=== PATIENT | female | born 1950 | race African-American/Black ===

== ENCOUNTER 2017-01-13 06:13 | Day surgery (SDC) | payer OTHER ==
[2017-01-09 13:35] LABS: HEMATOCRIT 39.4 % (36.0-48.0); HEMOGLOBIN 13.4 g/dL (12.0-16.0)
[2017-01-09 13:51] LABS: BUN (BLOOD UREA NITROGEN) 20 MG/DL (6-23); CALCIUM, SERUM 10.4 MG/DL (8.5-10.4); CHLORIDE, SERUM 106 MMOL/L (96-112); CO2 (CARBON DIOXIDE) 27 MMOL/L (24-34); CREATININE 1.06 MG/DL (0.55-1.02); GFR AFRICAN AMERICAN 62 ML/MIN (>=60); GFR NON AFRICAN AMERICAN 54 ML/MIN (>=60); GLUCOSE, SERUM 105 MG/DL (60-99); POTASSIUM, SERUM 3.7 MMOL/L (3.5-5.3); SODIUM, SERUM 142 MMOL/L (135-148)
[2017-01-09 14:04] LABS: INTACT PTH (ICMA) 102.5 PG/ML (10.0-65.0)
--- NOTE | ~2017-01-13 | OP ---
Record Of Operation [facility] [address] [place]. [address] NAME: LION BULLOCK : 46 STATUS : [facility]#: [id number] AGE: 66 ADM/REG DATE : 01/13/17 MR#: [id number] REPORT SERV DATE: 01/13/17 DICTATED BY: LEON LOPEZ DATE: 01/13/17 REPORT STATUS : Draft TRANSCRIBED BY: ELADIA DATE: 01/13/17 DATE OF PROCEDURE: 01/13/2017 PREOPERATIVE DIAGNOSIS: Primary hyperparathyroidism. POSTOPERATIVE DIAGNOSIS: Primary hyperparathyroidism. PROCEDURE: Parathyroidectomy using intraoperative PTH monitoring. OCCUPATIONAL THERAPY MANAGER: Tru Carvajal. ANESTHESIA: General. ESTIMATED BLOOD LOSS: 5 mL. IV FLUIDS: 1400 mL. SPECIMEN: Right inferior parathyroid gland. COMPLICATIONS: None. BRIEF HISTORY: Ms. Bullock is a 66-year-old woman who presented with primary hyperparathyroidism. In office, ultrasound showed evidence of a right inferior parathyroid gland. Her sestamibi scan was negative. Parathyroidectomy was recommended. The procedure with the risks including bleeding, infection, injury to the recurrent laryngeal nerve causing hoarseness, low calcium following surgery and a possibility of recurrent or persistent disease were all explained. She agreed to proceed. DESCRIPTION OF PROCEDURE: After consent was obtained, she was taken to the operating room and placed in supine position on the operating table. General endotracheal anesthesia was administered. A shoulder roll was placed, the neck was extended, and she was placed in semi Marsh's position. Preoperative antibiotics were administered, SCDs were placed, and a time out was performed. The neck was then prepped and draped in normal sterile fashion. We began with a 4 cm skin crease incision using a #15 blade scalpel. Electrocautery was then used to dissect through the subcutaneous tissues and platysma. Subplatysmal flaps were created and the strap muscles were in the midline using electrocautery. We began on the right side. We elevated the right strap muscle and dissected the thyroid away from strap muscle back to the carotid. We began at the lower pole of the right thyroid lobe. We elevated the gland, rotated anteromedially, and dissected posterior to the lower aspect. We identified a markedly enlarged parathyroid gland. At this site, it was low in the tracheoesophageal groove. The recurrent laryngeal nerve was actually coursing anterior to the gland and it was on the capsule. We gently dissected this away from the capsule and then we were able to dissect the gland circumferentially and pull it medially away from the nerve to dissect the nerve laterally and posteriorly away from the pedicle. Once we had it Record Of Operation [facility] [address] [place]. [address] NAME: LION BULLOCK : 46 STATUS : [facility]#: [id number] AGE: 66 ADM/REG DATE : 01/13/17 MR#: [id number] REPORT SERV DATE: 01/13/17 DICTATED BY: LEON LOPEZ DATE: 01/13/17 REPORT STATUS : Draft TRANSCRIBED BY: ELADIA DATE: 01/13/17 elevated, we divided the pedicle between clips and passed off the field. We then dissected the other three glands. We identified the other three and they had a normal appearance. We oswaldo an intraoperative PTH values. Our preoperative PTH was 98.6. At 10 minutes post excision, it had dropped to 23, and at 15 minutes post excision, it dropped to 21. We elected to conclude the case. We irrigated both sides of the neck. Hemostasis was good. Surgicel was placed. We closed the strap muscles in the midline using a running 3-0 Vicryl suture with a small gap left inferiorly. The platysma was reapproximated with interrupted 4-0 Vicryl sutures. A running 5-0 Monocryl deep dermal suture was placed followed by running 5-0 Prolene subcuticular stitch. The neck was cleaned. Dermabond was applied and the Prolene was removed. The patient tolerated the procedure well, was extubated in the operating room and sent to the recovery room in stable condition. OSCAR/ELADIA Leon Lopez MD / [id number] CC: MD Pietro Hunt MD
[~2017-01-13 06:13] MED LIST: ALTACE10 MG PO; AMB10 PO; AMILOR/HCTZ1 TAB PO; ASAB PO; CAT2 PO; GLUCPH PO; HYDROCHLOROT25 MG PO; INDO50 PO; KLOR-CON 1010 MEQ PO; LORTAB10 PO; MULTIPLE VIT PO; P1 PO; PROAIR HFA INH; ULTRAM50 PO; VALIUM10 MG PO
[2017-01-13 09:34] LABS: PTH (INTRAOPERATIVE) 98.6 PG/ML (10.0-65.0); PTH TAT 0 Hrs 19 Mins
[2017-01-13 10:50] LABS: PTH (INTRAOPERATIVE) 21.9 PG/ML (10.0-65.0); PTH TAT 0 Hrs 00 Mins
[2017-01-13 10:50] LABS: PTH (INTRAOPERATIVE) 23.3 PG/ML (10.0-65.0); PTH TAT 0 Hrs 00 Mins
== END 2017-01-13 13:57 | disposition home or self-care (01) ==
LOC: SDC 06:13
PROVIDERS: Surgery
PROC: 0GTN0ZZ Resection of Right Inferior Parathyroid Gland, Open Approach (ICD-10-PCS; principal; 2017-01-13 08:00)
DX: D35.1 Benign neoplasm of parathyroid gland (principal); I10 Essential (primary) hypertension; I48.0 Paroxysmal atrial fibrillation; E11.9 Type 2 diabetes mellitus without complications; M31.6 Other giant cell arteritis; J45.909 Unspecified asthma, uncomplicated; Z86.69 Personal history of other diseases of the nervous system and sense organs; Z86.711 Personal history of pulmonary embolism; Z91.040 Latex allergy status; Z88.8 Allergy status to other drugs, medicaments and biological substances
CPT/HCPCS: 80048; 82962; 83970; 85014; 85018; 88305; 88313; 93005; A9270-GY; J0690; J1720; J2250; J2270; J2405; J2710; J3010